=== PATIENT | male | born 1940 | race Two or more races ===

== ENCOUNTER 2024-07-24 16:50 | Emergency (ER) | payer OTHER, MEDICAID ==
[~2024-07-24] VITALS: Ht 165.1 cm; Wt 78.0 kg
[2024-07-24 17:27] LABS: BASOPHILS % (AUTO) 0.2 % (0.0-2.0); EOSINOPHILS # (AUTO) 0.4 K/uL (0.0-0.7); EOSINOPHILS % (AUTO) 6.1 % (0.0-6.0); HEMATOCRIT 44 % (39-51); HEMOGLOBIN 15.1 g/dL (13.5-17.5); LYMPHOCYTES # (AUTO) 1.1 K/uL (0.8-4.8); LYMPHOCYTES % (AUTO) 14.4 % (20.0-44.0); MEAN CORPUSCULAR HEMOGLOBIN 34 PG (26.0-33.0); MEAN CORPUSCULAR HGB CONC 35 g/dl (31.0-36.0); MEAN CORPUSCULAR VOLUME 99 fL (80-96); MONOCYTES # (AUTO) 1.1 K/uL (0.1-1.30); MONOCYTES % (AUTO) 14.4 % (2.0-12.0); NEUTROPHILS # (AUTO) 4.8 K/uL (1.8-8.9); NEUTROPHILS % (AUTO) 64.9 % (43.0-81.0); PLATELET COUNT (AUTO) 257 K/uL (150-450); RED BLOOD CELL COUNT(AUTO) 4.42 MIL/uL (4.5-6.0); RED CELL DISTRIBUTION WIDTH 13.8 % (11.5-15.0); WHITE BLOOD COUNT (AUTO) 7.3 K/uL (4.3-11.0)
[2024-07-24 17:37] LABS: CALCIUM, SERUM 9.4 mg/dL (8.5-10.1); CARBON DIOXIDE 25 mmol/L (21-32); CHLORIDE 99 mmol/L (98-107); CREATININE 1.3 mg/dL (0.6-1.3); GLUCOSE 96 mg/dL (74-106); POTASSIUM 3.2 mmol/L (3.5-5.1); SODIUM SERUM 132 mmol/L (136-145); UREA NITROGEN, BLOOD 12 mg/dL (7-18)
[2024-07-24 17:51] LABS: ALANINE AMINOTRANSFERASE 26 U/L (12-78); ALBUMIN 3.3 g/dL (3.4-5.0); ALKALINE PHOSPHATASE 78 U/L (46-116); ASPARTATE AMINOTRANSFERASE 28 U/L (15-37); BILIRUBIN,DIRECT 0.2 mg/dL (0.0-0.2); BILIRUBIN,TOTAL 0.7 mg/dL (0.2-1.0); NT-PRO BNP 362 pg/mL (0-125); TOTAL PROTEIN, SERUM 7.8 g/dL (6.4-8.2)
[2024-07-24 17:59] LABS: LACTIC ACID 1.6 mmol/L (0.4-2.0)
[2024-07-24] MEDS ORDERED: FUROSEMIDE 20 MG/2 ML VIAL ONE (20:22)
[2024-07-24] MEDS: POTASSIUM CHLORIDE 20 MEQ TAB.PRT.SR PO ONE (20:23)
[2024-07-24] MEDS: FUROSEMIDE 20 MG/2 ML VIAL IV ONE (20:23)
[2024-07-24 21:31] VITALS: TEMP 98.2
[2024-07-24] MEDS: ASPIRIN EC 325 MG TABLET.DR PO ONE (21:56)
[2024-07-25 01:00] VITALS: BP 103/69; O2SAT 97
== END 2024-07-25 01:50 | disposition short-term general hospital (02) ==
LOC: ER 17:05
DX: R07.9 Chest pain, unspecified (principal); I48.91 Unspecified atrial fibrillation; I21.4 Non-ST elevation (NSTEMI) myocardial infarction; I50.9 Heart failure, unspecified; E87.6 Hypokalemia
CPT/HCPCS: 99285; 96374; 93005; 71045; 85025; 80048; 87040 ×2; 83605; 80076; 36415; 84484 ×2; 83880; J1938